=== PATIENT | female | born 1945 | race Caucasian/White ===

== ENCOUNTER 2020-07-13 18:47 | Emergency (ER) | payer OTHER ==
[~2020-07-13] VITALS: Ht 175.3 cm; Wt 76.2 kg
--- NOTE | 2020-07-13 19:47 | NUR ---
[facility] unit [facility] from [facility] "Hallucinating (see dogs) agitation screaming earlier c/o Body Aches". PT AAOX1, RR EVEN & UNLABORED. DENIES CP, SOB, DIZZINESS, N/V AT THIS TIME. PT SEEN & EVAL'D BY DR. LUI. WILL CONT TO MONITOR.
[2020-07-13 19:55] LABS: BASOPHILS # (AUTO) 0.1 /CMM (0.0-0.2); BASOPHILS % (AUTO) 0.7 % (0.0-2.0); EOSINOPHILS % (AUTO) 1.7 % (0.0-6.0); HEMATOCRIT 37 % (33-45); LYMPHOCYTES % (AUTO) 25.6 % (20.0-44.0); MEAN CORPUSCULAR HGB CONC 33 g/dl (31.0-36.0); MEAN CORPUSCULAR VOLUME 97 fL (82-100); MONOCYTES # (AUTO) 0.4 /CMM (0.1-1.30); MONOCYTES % (AUTO) 4.6 % (2.0-12.0); NEUTROPHILS # (AUTO) 5.2 /CMM (1.8-8.9); NEUTROPHILS % (AUTO) 67.4 % (43.0-81.0); PLATELET COUNT (AUTO) 316 /CMM (150-450); RED BLOOD CELL COUNT(AUTO) 3.78 MIL/uL (4.0-5.2); WHITE BLOOD COUNT (AUTO) 7.8 K/uL (4.3-11.0)
[2020-07-13 20:16] LABS: CALCIUM, SERUM 9.6 mg/dL (8.5-10.1); CARBON DIOXIDE 24 mmol/L (21-32); CHLORIDE 108 mmol/L (98-107); CREATININE 0.8 mg/dL (0.6-1.3); GLUCOSE 112 mg/dL (74-106); POTASSIUM 3.5 mmol/L (3.5-5.1); SODIUM SERUM 141 mmol/L (136-145); UREA NITROGEN, BLOOD 25 mg/dL (7-18)
[2020-07-13 20:21] LABS: ALANINE AMINOTRANSFERASE 23 U/L (12-78); ALBUMIN 3.1 g/dL (3.4-5.0); ALKALINE PHOSPHATASE 93 U/L (46-116); ASPARTATE AMINOTRANSFERASE 19 U/L (15-37); BILIRUBIN,DIRECT 0.1 mg/dL (0.0-0.2); BILIRUBIN,TOTAL 0.2 mg/dL (0.2-1.0); TOTAL PROTEIN, SERUM 7.1 g/dL (6.4-8.2)
[2020-07-13 20:22] LABS: SALICYLATE 1.7 mg/dL (2.8-20.0)
[2020-07-13 20:23] LABS: ACETAMINOPHEN < 2 ug/ml (10-30)
[2020-07-13 20:44] LABS: APPEARANCE,URINE Cloudy (CLEAR); BILIRUBIN,URINE Negative (NEGATIVE); BLOOD, URINE Small Ery/uL (NEGATIVE); COLOR,URINE Yellow (YELLOW); KETONES,URINE Negative (NEGATIVE); LEUKOCYTE ESTERASE ,URINE Large (NEGATIVE); NITRITE, URINE Positive (NEGATIVE); PH,URINE 6.5 (5.0-8.0); PROTEIN,URINE 30 mg/dl (NEGATIVE); UGLUCOSE Negative (NEGATIVE); UROBILINOGEN,URINE 0.2 EU/dL (0.2)
[2020-07-13 20:57] LABS: BACTERIA,URINE 3+ /HPF (None Seen); SQUAMOUS EPITHELIAL CELL,UR Few /HPF (None Seen); WBC,URINE 21-50 /HPF (0-3)
--- NOTE | 2020-07-13 21:05 | NUR ---
CALLED [facility] TO PRESENT CASE, EXPECTING A CALL BACK FROM A HORTENSE
--- NOTE | 2020-07-13 21:23 | NUR ---
KARL CAMPUZANO TALKING TO DR. VICENTE FROM [facility]
[2020-07-13] MEDS ORDERED: CEPHALEXIN MONOHYDRATE 500 MG CAPSULE PO ONE (21:33)
[2020-07-13] MEDS: CEPHALEXIN MONOHYDRATE 500 MG CAPSULE PO SCH (21:42)
--- NOTE | 2020-07-13 21:43 | NUR ---
MEDICATED PER ORDER, PT ESTELA WELL. PT CALM & COOPERATIVE, NAD NOTED AT THIS TIME. WILL CONT TO MONITOR.
[2020-07-13 21:45] LABS: ALCOHOL, BLOOD 0 mg/dL (0-0)
--- NOTE | 2020-07-13 22:14 | NUR ---
CALLED [facility] [place] TO UPDATE THEM THAT WE CANT PROVIDE A BEHAVIORAL HEALTH RN.
--- NOTE | 2020-07-13 23:46 | NUR ---
PER IBRAHIMA FROM [place]. WILL CALL SON AND CALL BACK. ETA 1HR TO COME AND EVALUATE PT.
--- NOTE | 2020-07-14 01:16 | NUR ---
PT IN BED AWAKE AND RESPONSIVE W/ NO C/O PAIN OR DISCOMFORT . VSS. PT WAS PROVIDED W. WARM BLANKET . KEPT CLEAN AND COMFORTABLE. WILL CONT TO MONITOR ,
--- NOTE | 2020-07-14 01:55 | NUR ---
[facility], Amber, at bed side
--- NOTE | 2020-07-14 02:46 | NUR ---
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
--- NOTE | 2020-07-14 03:01 | NUR ---
SPOKE TO [facility] REGARDING PT TRANSPORT BACK TO [facility].
--- NOTE | 2020-07-14 03:15 | NUR ---
SPOKE TO [facility] TRANSPORT ETA [facility].
--- NOTE | 2020-07-14 04:24 | NUR ---
PT TRANSFERED BACK TO FACILITY. REPORT GIVEN TO TRANSFER.
[2020-07-14 04:28] VITALS: BP 137/71
== END 2020-07-14 05:07 ==
LOC: ER 18:50
DX: F29 Unspecified psychosis not due to a substance or known physiological condition (principal); N39.0 Urinary tract infection, site not specified; F03.90 Unspecified dementia, unspecified severity, without behavioral disturbance, psychotic disturbance, mood disturbance, and anxiety
CPT/HCPCS: 36415; 80048; 80076; 80305; 80307; 80329; 81001; 85025; 87077; 87081; 87086; 87186; 87426; 99285; C9803; G0480; 81000-TC